=== PATIENT | male | born 1960 | race Caucasian/White ===

== ENCOUNTER 2019-04-03 02:28 | Emergency (ER) | payer OTHER ==
[~2019-04-03] VITALS: Ht 182.9 cm; Wt 93.2 kg
[~2019-04-03 02:28] MED LIST: ASPIRIN 81M81 MG/TA2 PO; NAPROSYN; NO HOME MEDICATIONS; NORCO 325 MG-7.1 TAB PO; [UNRECOGNIZED DRUG - REMARK]
[2019-04-03 02:36] VITALS: BP 140/87; TEMP 97.7
[2019-04-03 02:44] VITALS: PULSE 61
[2019-04-03 04:05] LABS: COLLECTION METHOD CATHETER
[2019-04-03 04:17] LABS: PH 7 (5-8); SQUAMOUS EPITHELIAL None Seen /hpf; URINE APPEARANCE Clear; URINE BACTERIA Rare /hpf; URINE BILIRUBIN Negative (NEGATIVE); URINE BLOOD 3+ (NEGATIVE); URINE COLOR Yellow; URINE GLUCOSE Negative (NEGATIVE); URINE KETONE Trace (NEGATIVE); URINE LEUKOCYTE ESTERASE Negative (NEGATIVE); URINE NITRATE Negative (NEGATIVE); URINE PROTEIN(semi-quant) 1+ (NEGATIVE); URINE RBC >50 /hpf; URINE UROBILINOGEN Negative (NEGATIVE)
== END 2019-04-03 04:14 | disposition home or self-care (01) ==
LOC: COL.ER 02:28
PROVIDERS: Emergency Medicine
DX: R33.9 Retention of urine, unspecified (principal); Z87.448 Personal history of other diseases of urinary system